=== PATIENT | female | born 1930 | race Caucasian/White ===

== ENCOUNTER → 2017-01-07 | Outpatient (CLI) | payer OTHER, MEDICARE ==
[~2017-01-07] MED LIST: AMBEREN; CALCIUM OYSTER500 MG; CARDIZEM; CARDIZEM CD180 MG PO; COUMADIN; COUMADIN 3 MG TA3 MG PO; COUMADIN 4 MG TA4 M1 PO; DIOVAN HCT 1601 EACH; DOXYCYCLINE 10100 MG PO; EVISTA; FEMARA2.5 MG PO; FISH OIL 1,2001 EAC4 PO; FISHOIL; LANOXIN 0.120.125 M1; LOPRESSOR25 PO; LUTEIN6 MG PO; PRAVACHOL40 MG; PRESERVISION A1 EAC1; PRESERVISION T1 EACH PO; TOPROL XL25 MG PO; VITAMIN C 250250 MG PO
== END ==
LOC: CAT 11:36
DX: M47.816 Spondylosis without myelopathy or radiculopathy, lumbar region (principal); M41.86 Other forms of scoliosis, lumbar region